=== PATIENT | female | born 2005 | race Hispanic/Latino ===

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

== ENCOUNTER 2025-02-16 02:50 | Emergency (ER) | payer OTHER ==
[~2025-02-16] VITALS: Ht 165.1 cm; Wt 95.3 kg
[2025-02-16 02:51] VITALS: TEMP 98.9
[2025-02-16 03:28] LABS: BASOPHILS % 0.3 % (0.0-1.0); EOSINOPHILS % 3.8 % (0.0-6.0); LYMPHOCYTES % 34.3 % (18.0-39.1); MONOCYTES % 8.8 % (4.4-11.3); NEUTROPHILS % 52.6 % (38.7-80.0); RED CELL DISTRIBUTION WIDTH 14.6 % (11.7-14.4)
[2025-02-16 03:30] VITALS: PULSE 81; RESP 23
[2025-02-16 03:41] LABS: EST GLOMERULAR FILTRATION RATE 106.0 ML/MIN (>=60)
[2025-02-16 04:50] VITALS: BP 130/89; PULSE 85; RESP 20; TEMP 98.3; O2SAT 99
== END 2025-02-16 04:59 | disposition home or self-care (01) ==
LOC: ER 03:11
DX: R07.89 Other chest pain (principal)
CPT/HCPCS: 36415; 71045; 80053; 84484; 85025; 93005; 99284